=== PATIENT | female | born 1960 | race Caucasian/White ===

== ENCOUNTER 2018-03-05 17:17 | Outpatient (CLI) | payer BC ==
--- NOTE | 2018-03-08 00:56 | XRAY Report ---
Procedure Date: 03/05/2018 Accession Number: [id number] / [id number] Procedure: XR - Foot 3 View RT CPT Code: FULL RESULT: EXAM: RIGHT FOOT RADIOGRAPHY. EXAM DATE: 03/05/2018 05:23 PM. CLINICAL HISTORY: Chronic right foot pain. COMPARISON: None. TECHNIQUE: 3 views. FINDINGS: Bones: Normal. No fractures or bone lesions. Joints: 40 degrees of hallux valgus alignment. Prominent first metatarsal head bunion. Moderate first MTP joint space narrowing. Soft Tissues: Swelling noted at the first MTP joint. IMPRESSION: 1. No fracture. 2. 40 degrees of hallux valgus alignment. No dislocation. 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 3. First MTP region swelling. RADIA
== END 2018-03-05 17:18 | disposition home or self-care (01) ==
LOC: DI 17:17
PROVIDERS: ATTEND Family Medicine
DX: M19.071 Primary osteoarthritis, right ankle and foot (principal); M21.611 Bunion of right foot

== ENCOUNTER 2018-03-18 08:23 | Outpatient (CLI) | payer BC | END 2018-03-18 08:24 | disposition home or self-care (01) | LOC: DI.N 08:23 | PROVIDERS: ATTEND Family Medicine | DX: Z12.31 Encounter for screening mammogram for malignant neoplasm of breast (principal) | CPT/HCPCS: 77067 ==

== ENCOUNTER 2018-04-19 10:58 | Outpatient (CLI) | payer BC ==
--- NOTE | 2018-04-20 09:07 | Mammography Report ---
Reason: ABN MAMMO - BILAT SPEC VIEWS Procedure Date: 04/19/2018 Accession Number: [id number] / [id number] Procedure: ROYAL - Diag Special Views Dig Bilat CPT Code: FULL RESULT: EXAM: Diag Special Views Dig Bilat DATE: 04/19/2018 4:15 PM CLINICAL HISTORY: A 58-year-old female recalled from screening for findings of nodular densities in both breasts. TECHNIQUE: Right and left spot CC and right and left spot MLO views were obtained. COMPARISON: 03/18/2018, 02/27/2017, 02/25/2016, 01/29/2015. FINDINGS: The breasts demonstrate scattered fibroglandular densities bilaterally. The finding of nodular density in the right breast at the 3:00 position in the immediate subareolar region is identified as stable dating back to at least 2015 and demonstrates typically benign morphology of an intramammary lymph node. The right breast focal asymmetry seen at the 8:00 position resolves on spot view. The left breast a well-circumscribed hyperdense subcentimeter subareolar nodule at the 12:00 position is stable dating back to 2015 with morphology suggestive of an intramammary lymph node, typically benign finding. The left breast far posterior gently lobulated hyperdensity is stable dating back to 2017 with questionable 1 mm growth since 2016 and has previously been closely watched since 2014 and is not associated with microcalcifications, spiculations or distortion of the architecture and therefore probably benign. IMPRESSION: Probable benign findings RECOMMENDATION: Recommend routine 6 month diagnostic mammography unless otherwise clinically indicated. BIRADS CATEGORY 3 STANDARD QUALIFYING STATEMENTS: 1. This examination was not reviewed with the aid of Computer-Aided Detection (CAD). 2. A negative or benign imaging report should not delay biopsy if clinically suspicious findings are present. Consider surgical consultation if warrented. More than 5% of cancers are not identified by imaging. 3. Dense breasts may obscure an underlying neoplasm. These findings were discussed directly over the phone with Dr. Butcher and with the patient by the interpreting radiologist on 04/20/2018 at 9:00 AM.
== END 2018-04-19 10:59 | disposition home or self-care (01) ==
LOC: DI 10:58
PROVIDERS: ATTEND Family Medicine
DX: R92.8 Other abnormal and inconclusive findings on diagnostic imaging of breast (principal)
CPT/HCPCS: 77066

== ENCOUNTER 2019-02-25 | Outpatient (CLI) | payer BC | END 2019-02-25 09:03 | disposition home or self-care (01) | DX: R92.8 Other abnormal and inconclusive findings on diagnostic imaging of breast (principal); I10 Essential (primary) hypertension | CPT/HCPCS: 36415; 77062; 77066; 80053; 85025; 93005 ==

== ENCOUNTER 2019-02-25 | Outpatient (CLI) | payer BC | END 2019-02-25 09:56 | disposition home or self-care (01) | DX: I10 Essential (primary) hypertension (principal) ==

== ENCOUNTER 2019-03-01 09:52 | Day surgery (SDC) | payer BC ==
[2019-03-01] MEDS ORDERED: LACTATED RINGERS 1,000 ML IV ONE (10:19)
[2019-03-01] MEDS ORDERED: MIDAZOLAM 2 MG/2 ML VIAL IVP ONE (11:22)
[2019-03-01] MEDS ORDERED: fentaNYL 250 MCG/5 ML VIAL IVP ONE (11:22)
[2019-03-01 12:08] VITALS: BP 136/88
== END 2019-03-01 09:53 | disposition home or self-care (01) ==
LOC: SDS 09:52
PROVIDERS: ATTEND Internal Medicine Gastroenterology
PROC: 0DJD8ZZ Inspection of Lower Intestinal Tract, Via Natural or Artificial Opening Endoscopic (ICD-10-PCS; principal; 2019-03-01 11:00)
DX: Z12.11 Encounter for screening for malignant neoplasm of colon (principal); K57.30 Diverticulosis of large intestine without perforation or abscess without bleeding; I10 Essential (primary) hypertension; J45.909 Unspecified asthma, uncomplicated; K21.9 Gastro-esophageal reflux disease without esophagitis
CPT/HCPCS: 45378; J3010; J7120

== ENCOUNTER 2019-03-11 08:00 | Outpatient (CLI) | payer BC ==
[2019-03-11 12:18] LABS: CHOLESTEROL 209 mg/dL; HDL CHOLESTEROL 69 mg/dL; LDL CHOLESTEROL,CALCULATED 129 mg/dL; LDL/HDL RATIO 1.9 (<4.4); VLDL CHOLESTEROL 11 mg/dL
[2019-03-11 13:28] LABS: HB2 TOTAL 13.2 g/dL; HEMOGLOBIN A1C 0.47 g/dL; HEMOGLOBIN A1C % 5.4 % (4.6-6.2)
== END 2019-03-11 23:59 | disposition home or self-care (01) ==
LOC: LAB.WCP 08:00
PROVIDERS: ATTEND Physician Assistant
DX: Z00.00 Encounter for general adult medical examination without abnormal findings (principal)
CPT/HCPCS: 36415; 80061; 83036; 83721

== ENCOUNTER 2019-03-23 09:33 | Outpatient (CLI) | payer BC | END 2019-03-23 09:34 | disposition home or self-care (01) | LOC: NS 09:33 | PROVIDERS: ATTEND Physician Assistant | DX: Z71.3 Dietary counseling and surveillance (principal); E66.9 Obesity, unspecified; Z68.37 Body mass index [BMI] 37.0-37.9, adult | CPT/HCPCS: 97802 ==

== ENCOUNTER 2019-05-04 14:48 | Outpatient (CLI) | payer BC | END 2019-05-04 14:49 | disposition home or self-care (01) | LOC: NS 14:48 | PROVIDERS: ATTEND Physician Assistant | DX: Z71.3 Dietary counseling and surveillance (principal); E66.9 Obesity, unspecified; Z68.36 Body mass index [BMI] 36.0-36.9, adult | CPT/HCPCS: 97803 ==

== ENCOUNTER 2019-07-13 16:08 | Outpatient (CLI) | payer BC ==
--- NOTE | 2019-07-14 12:17 | XRAY Report ---
Reason: LOW BACK PAIN Procedure Date: 07/13/2019 Accession Number: [id number] / [id number] Procedure: XR - Lumbar Spine 2 View CPT Code: Final Report FULL RESULT: EXAM: LUMBOSACRAL SPINE RADIOGRAPHY EXAM DATE: 07/13/2019 04:25 PM. CLINICAL HISTORY: Low back pain. COMPARISONS: None. TECHNIQUE: 3 views. FINDINGS: Alignment: No scoliosis. Grade 1 anterolisthesis of L4 on L5 measuring up to 2.5-3 mm. Bones: Five [id number] lumbar vertebral bodies are present. No acute fracture or bony lesion. Mild degenerative spurring. Disks: Moderate disk space narrowing, endplate sclerosis and vacuum disk phenomenon seen at L5-S1 and mild disk space narrowing at L2-L3 and L3-L4. Facets: Moderate lumbar facet arthropathy. Sacroiliac Joints: Unremarkable. Soft Tissues: Vascular calcifications. No bowel obstruction. IMPRESSION: 1. Grade 1 anterolisthesis of L4 on L5 most likely due to facet arthropathy. 2. Mild to moderate intervertebral degenerative changes of lumbar spine greatest at L5-S1. 3. Lumbar facet arthropathy. RADIA
== END 2019-07-13 16:09 | disposition home or self-care (01) ==
LOC: DI 16:08
PROVIDERS: ATTEND Family Medicine
DX: M51.37 Other intervertebral disc degeneration, lumbosacral region (principal)
CPT/HCPCS: 72100

== ENCOUNTER 2020-04-17 09:26 | Outpatient (CLI) | payer BC ==
--- NOTE | 2020-04-18 14:14 | Ultrasound Report ---
LIMITED ULTRASOUND OF LEFT BREAST: 04/17/2020 CLINICAL: Patient returns for additional imaging over a suspected mass in the left breast. Comparison is made to exams dated: 04/17/2020 mammogram, 02/25/2019 mammogram, 04/19/2018 mammogram, 02/25 mammogram - [facility], 02/27/2017 mammogram, and 02/25/2016 mammogram - [facility] Radiologist. Color flow and real-time ultrasound of the left breast were performed. Leger scale images of the ángel l-time examination were reviewed. There is a benign 0.8 cm oval normal lymph node with a circumscribed margin in the left breast at 3 o 'clock middle depth. This oval normal lymph node displays fatty hilum and no posterior acoustic shad owing or enhancement. This correlates with mammography findings. Color flow imaging demonstrates th at there is vascularity present. IMPRESSION: BENIGN There is no sonographic evidence of malignancy. Mass seen on mammogram corresponds to a benign 0.8 cm intramammary lymph node. A 1 year screening mammogram is recommended. Exam findings conveyed to the patient. This exam was interpreted at Station ID: [id number]. Electronically Signed By: Rachid Baird M.D. slc/:04/17/2020 10:59:41 Ultrasound BI-RADS: 2 Benign BI-RADS CATEGORY: (2) - 2 RECOMMENDATION: (ANNUAL) - Recommend routine annual screening mammography. [id number] 1 year screening LATERALITY: (B)
--- NOTE | 2020-04-18 14:14 | Mammography Report ---
BILATERAL DIGITAL DIAGNOSTIC MAMMOGRAM 3D/2D: 04/17/2020 CLINICAL: Patient returns for a 12 month follow up of the left breast, due for bilateral exam. Comparison is made to exams dated: 02/25/2019 mammogram, 04/19/2018 mammogram, 03/18/2018 mammogram - [facility], 02/27/2017 mammogram, 02/25/2016 mammogram, and 09/11/2014 ultrasound - [facility] Radiologist. The tissue of both breasts is predominantly fatty. There is a stable 0.8 cm oval low density mass with a microlobulated margin in the left breast at 3 o 'clock middle depth. No other significant masses, calcifications, or other findings are seen in either breast. IMPRESSION: INCOMPLETE: NEEDS ADDITIONAL IMAGING EVALUATION Stable 0.8 cm oval low density mass in the left breast most likely is a lymph node and is indetermina te. A targeted ultrasound is recommended and will immediately follow. This exam was interpreted at Station ID: [id number]. NOTE: For mammograms, a report in lay terms will be sent to the patient. Approximately 15% of breast malignancies will not be visualized mammographically. In the management of a palpable breast mass, a negative mammogram must not discourage biopsy of a clinically suspicious lesion. Electronically Signed By: Rachid Baird M.D. slc/:04/17/2020 10:35:48 ACR BI-RADS Category 0: Incomplete 3340F PARENCHYMAL PATTERN: (F) - The breast(s) demonstrate(s) diffuse fatty replacement. BI-RADS CATEGORY: (0) - 0 Ultrasound [id number] Immediate follow-up LATERALITY: (B)
== END 2020-04-17 09:27 | disposition home or self-care (01) ==
LOC: DI 09:26
PROVIDERS: ATTEND Family Medicine
DX: R92.8 Other abnormal and inconclusive findings on diagnostic imaging of breast (principal)
CPT/HCPCS: 76642; 77066

== ENCOUNTER 2022-12-12 07:00 | Outpatient (CLI) | payer BC ==
--- NOTE | 2022-12-12 15:34 | XRAY Report ---
PROCEDURE: Chest 2 View X-Ray INDICATIONS: ACUTE COUGH/ACUTE COVID TECHNIQUE: 2 views of the chest were acquired. COMPARISON: None. FINDINGS: Surgical changes and devices: None. Lungs and pleura: No pleural effusions or pneumothorax. Lungs are clear. Mediastinum: Mediastinal contours appear normal. Heart size is normal. Bones and chest wall: No suspicious bony lesions. Overlying soft tissues appear unremarkable. IMPRESSION: No acute cardiopulmonary process. Reviewed by: Candelaria Marquez MD on 12/12/2022 3:33 PM PDT Approved by: Candelaria Marquez MD on 12/12/2022 3:33 PM PDT Station ID: [id number]
== END 2022-12-12 23:59 | disposition home or self-care (01) ==
LOC: DI.S 07:00
PROVIDERS: ATTEND Registered Nurse
DX: U07.1 COVID-19 (principal); R05.1 Acute cough

== ENCOUNTER 2022-12-29 07:42 | Outpatient (CLI) | payer BC ==
[2022-12-29 14:57] LABS: BASOPHILS # (AUTO) 0.1 10^3/uL (0.0-0.1); BASOPHILS % (AUTO) 0.8 %; EOSINOPHILS # (AUTO) 0.4 10^3/uL (0.0-0.7); EOSINOPHILS % (AUTO) 5.7 %; HCT - HEMATOCRIT 39.8 % (37.0-47.0); HGB - HEMOGLOBIN 12.6 g/dL (12.0-16.0); LYMPHOCYTES # (AUTO) 2.1 10^3/uL (1.5-3.5); LYMPHOCYTES % (AUTO) 32.9 %; MEAN CORPUSCULAR HEMOGLOBIN 30.3 pg (27.0-31.0); MEAN CORPUSCULAR HGB CONC 31.7 g/dL (32.0-36.0); MEAN CORPUSCULAR VOLUME 95.7 fL (81.0-99.0); MEAN PLATELET VOLUME 10.6 fL (7.9-10.8); MONOCYTES # (AUTO) 0.5 10^3/uL (0.0-1.0); MONOCYTES % (AUTO) 7.9 %; NEUTROPHILS # (AUTO) 3.3 10^3/uL (1.5-6.6); NEUTROPHILS % (AUTO) 52.5 %; PLT - PLATELET COUNT 327 10^3/uL (130-450); RED BLOOD COUNT 4.16 10^6/uL (4.20-5.40); RED CELL DISTRIBUTION WIDTH 15.4 % (12.0-15.0); WHITE BLOOD COUNT 6.3 x10^3/uL (4.8-10.8)
[2022-12-29 16:05] LABS: THYROID STIMULATING HORMONE 1.3 uIU/mL (0.34-5.60)
[2022-12-29 16:10] LABS: ALBUMIN 3.8 g/dL (3.2-5.5); ALBUMIN/GLOBULIN RATIO 1.3 (1.0-2.2); ALKALINE PHOSPHATASE 63 IU/L (42-121); ALT ALANINE AMINOTRANSFERASE 16 IU/L (10-60); AST ASPARTATE AMINOTRANSFERASE 16 IU/L (10-42); BILIRUBIN,TOTAL 0.4 mg/dL (0.2-1.0); BUN - BLOOD UREA NITROGEN 18 mg/dL (6-20); CARBON DIOXIDE - CO2 29 mmol/L (21-32); CHLORIDE 112 mmol/L (101-111); CHOL/HDL RATIO 2.4 (<4.4); CHOLESTEROL 184 mg/dL; CREATININE 0.7 mg/dL (0.4-1.0); GFR - MDRD 85 (>89); GLUCOSE 97 mg/dL (70-100); HDL CHOLESTEROL 78 mg/dL; LDL CHOLESTEROL,CALCULATED 92 mg/dL; LDL/HDL RATIO 1.2 (<4.4); POTASSIUM 4.6 mmol/L (3.5-5.0); SODIUM 144 mmol/L (135-145); TOTAL PROTEIN 6.8 g/dL (6.7-8.2); TRIGLYCERIDES 72 mg/dL; VLDL CHOLESTEROL 14 mg/dL
== END 2022-12-29 07:43 | disposition home or self-care (01) ==
LOC: LAB.S 07:42
PROVIDERS: ATTEND Registered Nurse
DX: I10 Essential (primary) hypertension (principal); Z13.220 Encounter for screening for lipoid disorders; Z79.899 Other long term (current) drug therapy
CPT/HCPCS: 36415; 80053; 80061; 83721; 84443; 85025

== ENCOUNTER 2023-01-12 12:57 | Outpatient (CLI) | payer BC ==
--- NOTE | 2023-01-13 10:37 | Mammography Report ---
BILATERAL DIGITAL SCREENING MAMMOGRAM 3D/2D: 01/12/2023 CLINICAL: Routine screening. Comparison is made to exams dated: 04/17/2020 mammogram, 02/25/2019 mammogram, 04/19/2018 mammogram, 02/25 mammogram - [facility], 02/27/2017 mammogram, and 02/25/2016 mammogram - [facility] Radiology. Both breasts are almost entirely fatty (category a/<25% glandular tissue). No significant masses, calcifications, or other findings are seen in either breast. There has been no significant interval change. IMPRESSION: NEGATIVE There is no mammographic evidence of malignancy. A 1 year screening mammogram is recommended. Based on the Tyrer Cuzick model (a risk assessment model) the patients lifetime risk is 4.0% and her 10 year risk is 1.7%. According to the ACR, ACS, and NCCN guidelines, an annual breast MRI exam laure g with mammogram is recommended if the patients lifetime risk is 20% or greater. This exam was interpreted at Station ID: [id number]. NOTE: For mammograms, a report in lay terms will be sent to the patient. Approximately 15% of breast malignancies will not be visualized mammographically. In the management of a palpable breast mass, a negative mammogram must not discourage biopsy of a clinically suspicious lesion. Electronically Signed By: Brandie cardenas/kianna:01/12/2023 19:28:50 letter sent: No_Letter ACR BI-RADS Category 1: Negative 3341F PARENCHYMAL PATTERN: (F) - The breast(s) demonstrate(s) diffuse fatty replacement. BI-RADS CATEGORY: (1) - 1 Mammogram [id number] 1 year screening LATERALITY: (B)
== END 2023-01-12 12:58 | disposition home or self-care (01) ==
LOC: DI 12:57
PROVIDERS: ATTEND Registered Nurse
DX: Z12.31 Encounter for screening mammogram for malignant neoplasm of breast (principal)

== ENCOUNTER 2023-10-26 18:01 | Outpatient (CLI) | payer OTHER, BC | END 2023-10-26 23:59 | disposition critical access hospital (66) | LOC: EMS 18:01 | DX: R07.89 Other chest pain (principal); V43.52XA Car driver injured in collision with other type car in traffic accident, initial encounter; Y92.413 State road as the place of occurrence of the external cause | CPT/HCPCS: A0425; A0429 ==

== ENCOUNTER 2023-10-26 18:06 | Emergency (ER) | payer OTHER, BC ==
[2023-10-26] MEDS: IBUPROFEN 800 MG TABLET PO STA (18:54)
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
[2023-10-26 19:59] VITALS: BP 154/106; O2SAT 97
== END 2023-10-26 19:55 | disposition home or self-care (01) ==
LOC: EDUNIT# → ED 18:06
DX: S09.90XA Unspecified injury of head, initial encounter (principal); S29.9XXA Unspecified injury of thorax, initial encounter; S19.9XXA Unspecified injury of neck, initial encounter; V49.40XA Driver injured in collision with unspecified motor vehicles in traffic accident, initial encounter; I10 Essential (primary) hypertension
CPT/HCPCS: 71045; 93005; 99283; A9270

== ENCOUNTER 2023-10-30 07:00 | Outpatient (CLI) | payer OTHER, BC ==
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
== END 2023-10-30 23:59 | disposition home or self-care (01) ==
LOC: DI.S 07:00
PROVIDERS: ATTEND Registered Nurse
DX: M50.321 Other cervical disc degeneration at C4-C5 level (principal); M47.812 Spondylosis without myelopathy or radiculopathy, cervical region

== ENCOUNTER 2024-04-06 07:00 | Outpatient (CLI) | payer BC, OTHER ==
--- NOTE | 2024-04-06 19:23 | XRAY Report ---
PROCEDURE: Chest 2V INDICATIONS: COUGH TECHNIQUE: 2 views of the chest were acquired. COMPARISON: Chest x-ray 10/26/2023 FINDINGS: Surgical changes and devices: None. Lungs and pleura: No pleural effusions or pneumothorax. Lungs are clear. Mediastinum: Mediastinal contours appear normal. Heart size is normal. Bones and chest wall: No suspicious bony lesions. Overlying soft tissues appear unremarkable. IMPRESSION: No acute cardiopulmonary process. Reviewed by: Candelaria Marquez MD on 04/06/2024 7:22 PM PDT Approved by: Candelaria Marquez MD on 04/06/2024 7:22 PM PDT Station ID: [id number]
== END 2024-04-06 23:59 | disposition home or self-care (01) ==
LOC: DI.S 07:00
PROVIDERS: ATTEND Physician Assistant Medical
DX: J40 Bronchitis, not specified as acute or chronic (principal)